=== PATIENT | male | born 1935 | race Caucasian/White ===

== ENCOUNTER 2020-03-26 09:00 | Inpatient (IN) ==
[2020-03-26 10:21] LABS: ALT 20 U/L (7-52); AST 13 U/L (13-39); Albumin/Globulin Ratio 2.1 (1-3); Alkaline Phosphatase 64 U/L (34-104); Anion Gap 6 mmol/L (2-11); BUN/Creatinine Ratio 22.5 (8-20); Blood Urea Nitrogen 45 mg/dL (6-24); CO2 Carbon Dioxide 25 mmol/L (22-32); Chloride 111 mmol/L (101-111); EGFR African American 38.7 (>60); Globulin 1.9 g/dL (2-4); Glucose 98 mg/dL (70-100); Potassium 4.3 mmol/L (3.5-5.0); Sodium 142 mmol/L (135-145); Total Protein 5.9 g/dL (6.4-8.9)
[2020-03-26 10:22] LABS: Activated Partial Thrombo Time 28.5 seconds (26.0-38.0); INR 1.24 (0.82-1.09)
[2020-03-26 10:45] LABS: ABS Neutrophils 0.7 10^3/ul (1.5-7.7); Eosinophil % 2.8 %; Hematocrit 14 % (42-52); Hemoglobin 4.9 g/dL (14.0-18.0); Lymphocyte % 55.4 %; Mean Corpuscular HGB Conc 35 g/dL (31-36); Mean Corpuscular Hemoglobin 38 pg (27-31); Mean Corpuscular Volume 110 fL (80-94); Nucleated Red Blood Cells % 0.1; Platelet Count 68 10^3/uL (150-450); Red Blood Count 1.29 10^6 /uL (4.18-5.48); Red Cell Distribution Width 18 % (10-15); White Blood Count 1.7 10^3/uL (3.5-10.8)
[2020-03-26 10:54] LABS: Troponin I 0.05 ng/mL (<0.03)
[2020-03-26 10:56] LABS: Urine Appearance Clear; Urine Bilirubin Negative (Negative); Urine Blood Negative (Negative); Urine Color Yellow; Urine Glucose Negative (Negative); Urine Ketones Negative (Negative); Urine Nitrite Negative (Negative); Urine Protein 1+(30 mg/dL) (Negative); Urine Specific Gravity 1.015 (1.010-1.030); Urine Urobilinogen Negative (Negative)
[2020-03-26 11:00] LABS: Urine Bacteria Absent (Absent); Urine Red Blood Cell Trace(0-2/hpf) (Absent); Urine White Blood Cell Trace(0-5/hpf) (Absent)
[2020-03-26 11:24] LABS: Polychromasia 1+
[2020-03-26 11:32] LABS: LDH 205 U/L (140-271)
[2020-03-26 11:55] LABS: Uric Acid 7.9 mg/dL (4.4-7.6)
[2020-03-26] MEDS ORDERED: Magnesium Hydroxide LIQ 30 ML UDC PO PRN (12:27)
[2020-03-26] MEDS ORDERED: Ondansetron 4 mg VIAL 2 MG/ML 2 ml VIAL IV PRN (12:27)
[2020-03-26 12:34] LABS: Fibrinogen 212.2 mg/dL (110.8-404.3)
[2020-03-26 12:43] LABS: % Iron Saturation 94 % (15-55); Iron 260 ug/dL (50-212); Total Iron Binding Capacity 277 mcg/dL (250-450); Transferrin 198 mg/dL (203-362); Unsaturated Iron Binding 17 ug/dL
[2020-03-26 13:09] LABS: Folate 8.07 ng/mL (>3.99)
[2020-03-26 13:10] LABS: Vitamin B12 95 pg/mL (180-914)
[2020-03-26 13:18] LABS: Ferritin 425.3 ng/mL (24-336)
[2020-03-26 13:59] LABS: Troponin I 0.04 ng/mL (<0.03)
[2020-03-26 14:00] LABS: Indirect Bilirubin 1.3 mg/dL (0.3-1.0)
[2020-03-26 16:05] LABS: Hematocrit for Retic CNT 16 % (42-52); RBC Retic Count 1.49 10^6/uL (4.18-5.48)
[2020-03-26 16:11] LABS: Corrected Retic Count 0.6 % (0.5-1.5); Immature Retic Fraction 0.49
[2020-03-26] MEDS ORDERED: Cyanocobalamin INJ 1,000 MCG/ML VIAL 1 ML VIAL IM ONE (18:00)
[2020-03-26 23:14] LABS: ABS Eosinophils 0.1 10^3/ul (0-0.6); ABS Lymphocytes 1.2 10^3/ul (1.0-4.8); ABS Neutrophils 0.8 10^3/ul (1.5-7.7); Eosinophil % 2.5 %; Hematocrit 19 % (42-52); Hemoglobin 6.7 g/dL (14.0-18.0); Lymphocyte % 56.5 %; Mean Corpuscular HGB Conc 35 g/dL (31-36); Mean Corpuscular Hemoglobin 35 pg (27-31); Mean Corpuscular Volume 101 fL (80-94); Mean Platelet Volume 8.9 fL (7.4-10.4); Nucleated Red Blood Cells % 0.1; Platelet Count 67 10^3/uL (150-450); Red Blood Count 1.92 10^6 /uL (4.18-5.48); Red Cell Distribution Width 21 % (10-15); White Blood Count 2.1 10^3/uL (3.5-10.8)
[2020-03-27 05:28] LABS: Albumin 3.5 g/dL (3.2-5.2); Albumin/Globulin Ratio 2.2 (1-3); BUN/Creatinine Ratio 19.8 (8-20); Calcium 8.7 mg/dL (8.6-10.3); EGFR African American 35.2 (>60); EGFR Non-African American 29.1 (>60); Globulin 1.6 g/dL (2-4); Potassium 4.4 mmol/L (3.5-5.0); Total Bilirubin 2.9 mg/dL (0.2-1.0); Total Protein 5.1 g/dL (6.4-8.9)
[2020-03-27 05:47] LABS: ABS Eosinophils 0.1 10^3/ul (0-0.6); ABS Neutrophils 0.8 10^3/ul (1.5-7.7); Hematocrit 20 % (42-52); Lymphocyte % 51.5 %; Mean Corpuscular HGB Conc 36 g/dL (31-36); Mean Corpuscular Hemoglobin 35 pg (27-31); Mean Corpuscular Volume 98 fL (80-94); Mean Platelet Volume 8.5 fL (7.4-10.4); Nucleated Red Blood Cells % 0.2; Platelet Count 56 10^3/uL (150-450); Red Cell Distribution Width 20 % (10-15); White Blood Count 1.9 10^3/uL (3.5-10.8)
[2020-03-27] MEDS: Aspirin EC 81 mg TAB.EC (enteric coated) PO SCH (10:05)
[2020-03-27] MEDS: Cyanocobalamin INJ 1,000 MCG/ML VIAL 1 ML VIAL IM SCH (10:06)
[2020-03-27 13:12] LABS: Hematocrit 23 % (42-52); Hemoglobin 7.8 g/dL (14.0-18.0)
[2020-03-27] MEDS: Cefepime 1 GM in Dextrose 1 GM/50 ML BAG IV SCH (13:35)
[2020-03-27 21:05] LABS: Urine Appearance Clear; Urine Bilirubin Negative (Negative); Urine Blood 3+ (Negative); Urine Color Yellow; Urine Glucose Negative (Negative); Urine Ketones Negative (Negative); Urine Nitrite Negative (Negative); Urine Protein 1+(30 mg/dL) (Negative); Urine Urobilinogen Negative (Negative)
[2020-03-27 21:08] LABS: Urine Bacteria 1+ (Absent); Urine Red Blood Cell 1+(3-5/hpf) (Absent); Urine White Blood Cell Trace(0-5/hpf) (Absent)
[2020-03-28] MEDS: Cefepime 1 GM in Dextrose 1 GM/50 ML BAG IV SCH ×2 (00:56→14:22)
[2020-03-28 05:54] LABS: ABS Lymphocytes 0.4 10^3/ul (1.0-4.8); ABS Monocytes 0.1 10^3/ul (0-0.8); Eosinophil % 0.3 %; Hematocrit 19 % (42-52); Hemoglobin 6.5 g/dL (14.0-18.0); Lymphocyte % 29.4 %; Mean Corpuscular HGB Conc 35 g/dL (31-36); Mean Corpuscular Hemoglobin 35 pg (27-31); Mean Corpuscular Volume 99 fL (80-94); Mean Platelet Volume 8.7 fL (7.4-10.4); Nucleated Red Blood Cells % 0.1; Platelet Count 47 10^3/uL (150-450); Red Blood Count 1.89 10^6 /uL (4.18-5.48); Red Cell Distribution Width 19 % (10-15); White Blood Count 1.5 10^3/uL (3.5-10.8)
[2020-03-28 06:05] LABS: Albumin 3.3 g/dL (3.2-5.2); Albumin/Globulin Ratio 1.8 (1-3); BUN/Creatinine Ratio 20.5 (8-20); Calcium 8.7 mg/dL (8.6-10.3); EGFR African American 31.5 (>60); Globulin 1.8 g/dL (2-4); Indirect Bilirubin 1.9 mg/dL (0.3-1.0); Total Bilirubin 2.5 mg/dL (0.2-1.0); Total Protein 5.1 g/dL (6.4-8.9)
[2020-03-28 08:23] LABS: Hematocrit for Retic CNT 19 % (42-52); RBC Retic Count 1.89 10^6/uL (4.18-5.48)
[2020-03-28 08:29] LABS: Corrected Retic Count 0.5 % (0.5-1.5)
[2020-03-28] MEDS: Aspirin EC 81 mg TAB.EC (enteric coated) PO SCH (08:52)
[2020-03-28] MEDS: Cyanocobalamin INJ 1,000 MCG/ML VIAL 1 ML VIAL IM SCH (08:52)
[2020-03-29 06:02] LABS: ABS Basophils 0.1 10^3/ul (0-0.2); ABS Lymphocytes 0.7 10^3/ul (1.0-4.8); ABS Monocytes 0.1 10^3/ul (0-0.8); ABS Neutrophils 0.8 10^3/ul (1.5-7.7); Eosinophil % 0.5 %; Hematocrit 20 % (42-52); Hemoglobin 6.9 g/dL (14.0-18.0); Lymphocyte % 40.1 %; Mean Corpuscular HGB Conc 35 g/dL (31-36); Mean Corpuscular Hemoglobin 34 pg (27-31); Mean Corpuscular Volume 97 fL (80-94); Mean Platelet Volume 8.3 fL (7.4-10.4); Nucleated Red Blood Cells % 0.2; Platelet Count 45 10^3/uL (150-450); Red Blood Count 2.02 10^6 /uL (4.18-5.48); Red Cell Distribution Width 19 % (10-15); White Blood Count 1.6 10^3/uL (3.5-10.8)
[2020-03-29 06:10] LABS: BUN/Creatinine Ratio 24.4 (8-20); Calcium 8.4 mg/dL (8.6-10.3); EGFR African American 40.3 (>60); EGFR Non-African American 33.3 (>60)
[2020-03-29] MEDS: Aspirin EC 81 mg TAB.EC (enteric coated) PO SCH (08:37)
[2020-03-29] MEDS: Cyanocobalamin INJ 1,000 MCG/ML VIAL 1 ML VIAL IM SCH (08:37)
[2020-03-29] MEDS: CEFEPIME 2 GM in Dextrose 50 mL IV SCH (14:13)
[2020-03-30 06:54] LABS: ABS Basophils 0.2 10^3/ul (0-0.2); ABS Eosinophils 0.1 10^3/ul (0-0.6); ABS Monocytes 0.1 10^3/ul (0-0.8); ABS Neutrophils 0.8 10^3/ul (1.5-7.7); Eosinophil % 2.7 %; Hematocrit 23 % (42-52); Hemoglobin 8.1 g/dL (14.0-18.0); Lymphocyte % 47.6 %; Mean Corpuscular HGB Conc 35 g/dL (31-36); Mean Corpuscular Hemoglobin 33 pg (27-31); Mean Corpuscular Volume 95 fL (80-94); Mean Platelet Volume 9.2 fL (7.4-10.4); Nucleated Red Blood Cells % 0.2; Platelet Count 54 10^3/uL (150-450); Red Blood Count 2.45 10^6 /uL (4.18-5.48); Red Cell Distribution Width 19 % (10-15); White Blood Count 2.1 10^3/uL (3.5-10.8)
[2020-03-30 07:05] LABS: BUN/Creatinine Ratio 28.4 (8-20); Calcium 8.6 mg/dL (8.6-10.3); EGFR African American 51.9 (>60); EGFR Non-African American 42.9 (>60); Magnesium 1.8 mg/dL (1.9-2.7); Potassium 4.3 mmol/L (3.5-5.0)
[2020-03-30] MEDS: Aspirin EC 81 mg TAB.EC (enteric coated) PO SCH (08:02)
[2020-03-30] MEDS: Cyanocobalamin INJ 1,000 MCG/ML VIAL 1 ML VIAL IM SCH (08:04)
[2020-03-30] MEDS: CEFEPIME 2 GM in Dextrose 50 mL IV SCH (11:47)
[2020-03-30 15:52] LABS: Intrinsic Factor Blocking AB Positive (Negative)
[2020-03-30 18:09] LABS: Haptoglobin 43 mg/dL (30 - 200)
[2020-03-30 19:35] LABS: Kappa Free Light Chain 1230 mg/dL
[2020-03-30 21:12] LABS: Parietal Cell Ab IgG <10.0 U
[2020-03-31 05:39] LABS: ABS Lymphocytes 0.9 10^3/ul (1.0-4.8); ABS Neutrophils 1.1 10^3/ul (1.5-7.7); Eosinophil % 1.4 %; Hematocrit 26 % (42-52); Lymphocyte % 43.4 %; Mean Corpuscular HGB Conc 35 g/dL (31-36); Mean Corpuscular Hemoglobin 33 pg (27-31); Mean Corpuscular Volume 95 fL (80-94); Mean Platelet Volume 8.5 fL (7.4-10.4); Nucleated Red Blood Cells % 0.1; Platelet Count 55 10^3/uL (150-450); Red Blood Count 2.71 10^6 /uL (4.18-5.48); Red Cell Distribution Width 18 % (10-15); White Blood Count 2.1 10^3/uL (3.5-10.8)
[2020-03-31 05:58] LABS: Calcium 9.2 mg/dL (8.6-10.3); EGFR African American 63.1 (>60); EGFR Non-African American 52.1 (>60); Magnesium 1.7 mg/dL (1.9-2.7); Potassium 4.2 mmol/L (3.5-5.0)
[2020-03-31] MEDS: Aspirin EC 81 mg TAB.EC (enteric coated) PO SCH (09:22)
[2020-03-31] MEDS: Cyanocobalamin INJ 1,000 MCG/ML VIAL 1 ML VIAL IM SCH (09:25)
[2020-03-31] MEDS: CEFEPIME 2 GM in Dextrose 50 mL IV SCH (12:53)
[2020-03-31 13:20] LABS: Body Fluid Source Synovial Fluid
[2020-03-31 14:39] LABS: Body Fluid Mono 1 %
[2020-03-31 16:19] LABS: Albumin 3.2 g/dL (3.4-4.7); Albumin/Globulin Ratio 1.52; Gamma Globulin 0.5 g/dL (0.6-1.6); Total Protein(PEP) 5.3 g/dL (6.3 - 7.9)
[2020-03-31] MEDS: Cefepime 2 GM in Dextrose 2 GM/50 ML BAG IV SCH (22:22)
[2020-04-01 06:04] LABS: ABS Lymphocytes 0.9 10^3/ul (1.0-4.8); ABS Monocytes 0.1 10^3/ul (0-0.8); Eosinophil % 0.4 %; Hematocrit 25 % (42-52); Hemoglobin 8.6 g/dL (14.0-18.0); Lymphocyte % 44.8 %; Mean Corpuscular HGB Conc 35 g/dL (31-36); Mean Corpuscular Hemoglobin 33 pg (27-31); Mean Corpuscular Volume 96 fL (80-94); Mean Platelet Volume 8.5 fL (7.4-10.4); Nucleated Red Blood Cells % 0.1; Platelet Count 54 10^3/uL (150-450); Red Blood Count 2.59 10^6 /uL (4.18-5.48); Red Cell Distribution Width 18 % (10-15); White Blood Count 2.1 10^3/uL (3.5-10.8)
[2020-04-01 06:20] LABS: BUN/Creatinine Ratio 24.1 (8-20); C Reactive Protein 156.29 mg/L (<8.01); EGFR African American 59.9 (>60); EGFR Non-African American 49.5 (>60); Magnesium 1.8 mg/dL (1.9-2.7); Potassium 4.3 mmol/L (3.5-5.0)
[2020-04-01] MEDS: Aspirin EC 81 mg TAB.EC (enteric coated) PO SCH (09:32)
[2020-04-01] MEDS: Cyanocobalamin INJ 1,000 MCG/ML VIAL 1 ML VIAL IM SCH (09:33)
[2020-04-01] MEDS ORDERED: Lidocaine 2% PF 5 ML VIAL INJ ONE (10:01)
[2020-04-01 11:29] LABS: TSH Ultra Thyroid Stim Horm 1.18 mcIU/mL (0.34-5.60)
[2020-04-01] MEDS: Cefepime 2 GM in Dextrose 2 GM/50 ML BAG IV SCH ×2 (11:39→22:25)
[2020-04-01 14:24] LABS: Albumin 7 %; Albumin/Globulin Ratio 0.08 %; Gamma Globulin 86 %; Total Protein(PEP) Urine 362 mg/dL
[2020-04-02 05:32] LABS: ABS Lymphocytes 0.9 10^3/ul (1.0-4.8); ABS Neutrophils 1.2 10^3/ul (1.5-7.7); Eosinophil % 0.9 %; Hematocrit 25 % (42-52); Hemoglobin 8.4 g/dL (14.0-18.0); Lymphocyte % 41.5 %; Mean Corpuscular HGB Conc 34 g/dL (31-36); Mean Corpuscular Hemoglobin 33 pg (27-31); Mean Corpuscular Volume 97 fL (80-94); Mean Platelet Volume 8.8 fL (7.4-10.4); Nucleated Red Blood Cells % 0.1; Platelet Count 58 10^3/uL (150-450); Red Blood Count 2.55 10^6 /uL (4.18-5.48); Red Cell Distribution Width 18 % (10-15); White Blood Count 2.1 10^3/uL (3.5-10.8)
[2020-04-02 05:36] LABS: BUN/Creatinine Ratio 23.3 (8-20); Calcium 9.5 mg/dL (8.6-10.3); EGFR African American 53.9 (>60); EGFR Non-African American 44.6 (>60); Potassium 4.3 mmol/L (3.5-5.0)
[2020-04-02] MEDS: Cyanocobalamin INJ 1,000 MCG/ML VIAL 1 ML VIAL IM SCH (09:00)
[2020-04-02] MEDS: Aspirin EC 81 mg TAB.EC (enteric coated) PO SCH (09:00)
[2020-04-02] MEDS: Cefepime 2 GM in Dextrose 2 GM/50 ML BAG IV SCH (11:04)
[2020-04-02 14:59] LABS: Immunoglobulin A 20 mg/dL (61 - 356); Immunoglobulin G 361 mg/dL (767 - 1590); Immunoglobulin M 7 mg/dL (37 - 286)
[2020-04-03 03:39] LABS: Urine Appearance Cloudy; Urine Bilirubin Negative (Negative); Urine Blood 2+ (Negative); Urine Color Yellow; Urine Glucose Negative (Negative); Urine Ketones Negative (Negative); Urine Nitrite Negative (Negative); Urine Protein 2+(100 mg/dL) (Negative); Urine Specific Gravity 1.018 (1.010-1.030); Urine Urobilinogen Negative (Negative)
[2020-04-03 03:48] LABS: Urine Bacteria Absent (Absent); Urine Red Blood Cell 2+(6-10/hpf) (Absent); Urine Squamous Epithelial Cell Present (Absent); Urine White Blood Cell Trace(0-5/hpf) (Absent)
[2020-04-03] MEDS: Aspirin EC 81 mg TAB.EC (enteric coated) PO SCH (08:37)
[2020-04-03] MEDS: Cyanocobalamin INJ 1,000 MCG/ML VIAL 1 ML VIAL IM SCH (08:40)
[2020-04-04 05:49] LABS: ABS Monocytes 0.1 10^3/ul (0-0.8); ABS Neutrophils 1.3 10^3/ul (1.5-7.7); Hematocrit 22 % (42-52); Hemoglobin 7.8 g/dL (14.0-18.0); Lymphocyte % 41.4 %; Mean Corpuscular HGB Conc 35 g/dL (31-36); Mean Corpuscular Hemoglobin 34 pg (27-31); Mean Corpuscular Volume 94 fL (80-94); Mean Platelet Volume 8.8 fL (7.4-10.4); Platelet Count 57 10^3/uL (150-450); Red Blood Count 2.33 10^6 /uL (4.18-5.48); Red Cell Distribution Width 17 % (10-15); White Blood Count 2.4 10^3/uL (3.5-10.8)
[2020-04-04 06:02] LABS: BUN/Creatinine Ratio 22.1 (8-20); EGFR African American 43.4 (>60); EGFR Non-African American 35.9 (>60); Potassium 4.6 mmol/L (3.5-5.0)
[2020-04-04] MEDS: Aspirin EC 81 mg TAB.EC (enteric coated) PO SCH (10:03)
[2020-04-05] MEDS: Aspirin EC 81 mg TAB.EC (enteric coated) PO SCH (09:19)
[2020-04-05 10:39] LABS: Hematocrit 25 % (42-52); Hemoglobin 8.5 g/dL (14.0-18.0); Mean Corpuscular HGB Conc 35 g/dL (31-36); Mean Corpuscular Hemoglobin 33 pg (27-31); Mean Corpuscular Volume 95 fL (80-94); Mean Platelet Volume 8.3 fL (7.4-10.4); Platelet Count 67 10^3/uL (150-450); Red Blood Count 2.58 10^6 /uL (4.18-5.48); Red Cell Distribution Width 18 % (10-15); White Blood Count 2.7 10^3/uL (3.5-10.8)
[2020-04-05 10:52] LABS: BUN/Creatinine Ratio 19.6 (8-20); Calcium 9.5 mg/dL (8.6-10.3); EGFR African American 37.8 (>60); EGFR Non-African American 31.3 (>60); Potassium 4.6 mmol/L (3.5-5.0)
[2020-04-05 11:28] LABS: ABS Basophils 0.1 10^3/ul (0-0.2); ABS Lymphocytes 1.1 10^3/ul (1.0-4.8); ABS Monocytes 0.5 10^3/ul (0-0.8); ABS Neutrophils 1.1 10^3/ul (1.5-7.7); Eosinophil % 0.8 %; Lymphocyte % 38.8 %; Nucleated Red Blood Cells % 0.2
[2020-04-05] MEDS: NS 0.9% 1000 ml BAG 1,000 ML IV SCH (17:08)
[2020-04-06 06:00] LABS: ABS Lymphocytes 1.2 10^3/ul (1.0-4.8); ABS Monocytes 0.1 10^3/ul (0-0.8); ABS Neutrophils 1.4 10^3/ul (1.5-7.7); Eosinophil % 0.6 %; Hematocrit 23 % (42-52); Lymphocyte % 45.8 %; Mean Corpuscular HGB Conc 35 g/dL (31-36); Mean Corpuscular Hemoglobin 33 pg (27-31); Mean Corpuscular Volume 95 fL (80-94); Mean Platelet Volume 8.4 fL (7.4-10.4); Nucleated Red Blood Cells % 0.2; Platelet Count 58 10^3/uL (150-450); Red Blood Count 2.41 10^6 /uL (4.18-5.48); Red Cell Distribution Width 18 % (10-15); White Blood Count 2.7 10^3/uL (3.5-10.8)
[2020-04-06 06:07] LABS: Potassium 4.6 mmol/L (3.5-5.0)
[2020-04-06 06:08] LABS: Albumin 2.9 g/dL (3.2-5.2); Calcium 9.5 mg/dL (8.6-10.3); EGFR African American 38.7 (>60); Magnesium 2.5 mg/dL (1.9-2.7); Total Bilirubin 1.4 mg/dL (0.2-1.0); Total Protein 5.9 g/dL (6.4-8.9)
[2020-04-06] MEDS: NS 0.9% 1000 ml BAG 1,000 ML IV SCH ×2 (08:52→22:27)
[2020-04-06 09:02] LABS: C Reactive Protein 106.75 mg/L (<8.01)
[2020-04-06] MEDS: Aspirin EC 81 mg TAB.EC (enteric coated) PO SCH (11:10)
[2020-04-07 05:14] LABS: Hematocrit 21 % (42-52); Hemoglobin 7.2 g/dL (14.0-18.0); Mean Corpuscular HGB Conc 35 g/dL (31-36); Mean Corpuscular Hemoglobin 33 pg (27-31); Mean Corpuscular Volume 95 fL (80-94); Mean Platelet Volume 8.5 fL (7.4-10.4); Platelet Count 60 10^3/uL (150-450); Red Blood Count 2.19 10^6 /uL (4.18-5.48); Red Cell Distribution Width 17 % (10-15); White Blood Count 2.4 10^3/uL (3.5-10.8)
[2020-04-07 05:27] LABS: BUN/Creatinine Ratio 24.2 (8-20); Calcium 9.5 mg/dL (8.6-10.3); EGFR African American 41.1 (>60); EGFR Non-African American 33.9 (>60); Magnesium 2.3 mg/dL (1.9-2.7); Potassium 4.4 mmol/L (3.5-5.0)
[2020-04-07 06:37] LABS: Spherocytes 1+
[2020-04-07 06:45] LABS: ABS Neutrophils 0.7 10^3/ul (1.5-7.7)
[2020-04-07] MEDS: Aspirin EC 81 mg TAB.EC (enteric coated) PO SCH (09:58)
[2020-04-07] MEDS: NS 0.9% 1000 ml BAG 1,000 ML IV SCH (12:23)
[2020-04-07 14:15] LABS: C Reactive Protein 91.43 mg/L (<8.01)
[2020-04-08] MEDS: NS 0.9% 1000 ml BAG 1,000 ML IV SCH ×2 (02:25→16:58)
[2020-04-08 06:31] LABS: ABS Neutrophils 1.1 10^3/ul (1.5-7.7); Eosinophil % 0.1 %; Hematocrit 22 % (42-52); Hemoglobin 7.4 g/dL (14.0-18.0); Lymphocyte % 45.4 %; Mean Corpuscular HGB Conc 34 g/dL (31-36); Mean Corpuscular Hemoglobin 33 pg (27-31); Mean Corpuscular Volume 96 fL (80-94); Mean Platelet Volume 8.7 fL (7.4-10.4); Nucleated Red Blood Cells % 0.1; Platelet Count 63 10^3/uL (150-450); Red Blood Count 2.24 10^6 /uL (4.18-5.48); Red Cell Distribution Width 18 % (10-15); White Blood Count 2.1 10^3/uL (3.5-10.8)
[2020-04-08 06:33] LABS: BUN/Creatinine Ratio 31.6 (8-20); Calcium 9.1 mg/dL (8.6-10.3); EGFR African American 44.6 (>60); EGFR Non-African American 36.8 (>60); Potassium 4.7 mmol/L (3.5-5.0)
[2020-04-08] MEDS: Aspirin EC 81 mg TAB.EC (enteric coated) PO SCH (08:55)
[2020-04-09 06:02] LABS: Hematocrit 19 % (42-52); Hemoglobin 6.7 g/dL (14.0-18.0); Mean Corpuscular HGB Conc 35 g/dL (31-36); Mean Corpuscular Hemoglobin 33 pg (27-31); Mean Corpuscular Volume 94 fL (80-94); Mean Platelet Volume 8.3 fL (7.4-10.4); Platelet Count 58 10^3/uL (150-450); Red Blood Count 2.03 10^6 /uL (4.18-5.48); Red Cell Distribution Width 17 % (10-15); White Blood Count 1.9 10^3/uL (3.5-10.8)
[2020-04-09 06:13] LABS: Albumin 2.7 g/dL (3.2-5.2); Albumin/Globulin Ratio 1.1 (1-3); BUN/Creatinine Ratio 36.9 (8-20); Calcium 8.5 mg/dL (8.6-10.3); EGFR African American 51.2 (>60); EGFR Non-African American 42.3 (>60); Globulin 2.4 g/dL (2-4); Potassium 4.9 mmol/L (3.5-5.0); Total Bilirubin 0.8 mg/dL (0.2-1.0); Total Protein 5.1 g/dL (6.4-8.9)
[2020-04-09] MEDS: NS 0.9% 1000 ml BAG 1,000 ML IV SCH (08:07)
[2020-04-09] MEDS: Aspirin EC 81 mg TAB.EC (enteric coated) PO SCH (09:14)
[2020-04-10] MEDS: NS 0.9% 1000 ml BAG 1,000 ML IV SCH ×3 (00:20→23:51)
[2020-04-10 06:14] LABS: ABS Lymphocytes 0.4 10^3/ul (1.0-4.8); ABS Monocytes 0.2 10^3/ul (0-0.8); ABS Neutrophils 1.1 10^3/ul (1.5-7.7); Hematocrit 22 % (42-52); Hemoglobin 7.6 g/dL (14.0-18.0); Lymphocyte % 23.1 %; Mean Corpuscular HGB Conc 35 g/dL (31-36); Mean Corpuscular Hemoglobin 33 pg (27-31); Mean Corpuscular Volume 93 fL (80-94); Mean Platelet Volume 8.6 fL (7.4-10.4); Platelet Count 53 10^3/uL (150-450); Red Blood Count 2.33 10^6 /uL (4.18-5.48); Red Cell Distribution Width 16 % (10-15); White Blood Count 1.7 10^3/uL (3.5-10.8)
[2020-04-10 06:27] LABS: BUN/Creatinine Ratio 36.1 (8-20); Calcium 8.3 mg/dL (8.6-10.3); EGFR African American 38.3 (>60); EGFR Non-African American 31.6 (>60); Potassium 5.2 mmol/L (3.5-5.0)
[2020-04-10] MEDS: Aspirin EC 81 mg TAB.EC (enteric coated) PO SCH (08:44)
[2020-04-11 07:16] LABS: BUN/Creatinine Ratio 39.8 (8-20); Calcium 7.8 mg/dL (8.6-10.3); EGFR African American 35.4 (>60); EGFR Non-African American 29.3 (>60); Potassium 5.6 mmol/L (3.5-5.0)
[2020-04-11 07:33] LABS: ABS Lymphocytes 0.3 10^3/ul (1.0-4.8); ABS Monocytes 0.1 10^3/ul (0-0.8); ABS Neutrophils 0.8 10^3/ul (1.5-7.7); Hematocrit 20 % (42-52); Hemoglobin 6.8 g/dL (14.0-18.0); Lymphocyte % 23.2 %; Mean Corpuscular HGB Conc 34 g/dL (31-36); Mean Corpuscular Hemoglobin 32 pg (27-31); Mean Corpuscular Volume 95 fL (80-94); Mean Platelet Volume 9.2 fL (7.4-10.4); Nucleated Red Blood Cells % 0.3; Platelet Count 46 10^3/uL (150-450); Red Cell Distribution Width 17 % (10-15); White Blood Count 1.2 10^3/uL (3.5-10.8)
[2020-04-11] MEDS: Aspirin EC 81 mg TAB.EC (enteric coated) PO SCH (09:36)
[2020-04-11] MEDS: NS 0.9% 1000 ml BAG 1,000 ML IV SCH ×2 (09:54→23:33)
[2020-04-12 06:12] LABS: ABS Lymphocytes 0.3 10^3/ul (1.0-4.8); Hematocrit 20 % (42-52); Hemoglobin 6.7 g/dL (14.0-18.0); Lymphocyte % 24.5 %; Mean Corpuscular HGB Conc 34 g/dL (31-36); Mean Corpuscular Hemoglobin 32 pg (27-31); Mean Corpuscular Volume 95 fL (80-94); Platelet Count 48 10^3/uL (150-450); Red Blood Count 2.07 10^6 /uL (4.18-5.48); Red Cell Distribution Width 17 % (10-15); White Blood Count 1.4 10^3/uL (3.5-10.8)
[2020-04-12 06:26] LABS: Albumin 2.6 g/dL (3.2-5.2); Albumin/Globulin Ratio 1.5 (1-3); BUN/Creatinine Ratio 41.8 (8-20); Calcium 7.7 mg/dL (8.6-10.3); EGFR African American 40.1 (>60); EGFR Non-African American 33.1 (>60); Globulin 1.7 g/dL (2-4); Total Protein 4.3 g/dL (6.4-8.9)
[2020-04-12 06:32] LABS: Potassium 5.4 mmol/L (3.5-5.0)
[2020-04-12] MEDS: NS 0.9% 1000 ml BAG 1,000 ML IV SCH ×2 (09:51→20:46)
[2020-04-12] MEDS: Aspirin EC 81 mg TAB.EC (enteric coated) PO SCH (09:53)
[2020-04-13] MEDS: NS 0.9% 1000 ml BAG 1,000 ML IV SCH (07:02)
[2020-04-13] MEDS: Aspirin EC 81 mg TAB.EC (enteric coated) PO SCH (09:10)
[2020-04-13 20:06] LABS: Cyclic Citrullinated Pept IgG <15.6 U
[2020-04-14 07:42] VITALS: BP 110/55
[2020-04-14] MEDS: Aspirin EC 81 mg TAB.EC (enteric coated) PO SCH (09:15)
== END 2020-04-14 11:10 | disposition hospice, home (50) | DRG 841 ==
LOC: SSU 09:00 → ED 09:00 → SSU 03-31 16:12
PROVIDERS: ADMIT Pediatrics; ATTEND Internal Medicine